=== PATIENT | female | born 2000 | race Caucasian/White ===

== ENCOUNTER 2020-07-07 20:42 | Outpatient (CLI) | payer OTHER ==
[~2020-07-07] VITALS: Ht 172.7 cm; Wt 72.7 kg
[2020-07-07 20:53] VITALS: BP 124/75
[2020-07-07 20:56] VITALS: BP 109/72
[2020-07-07] MEDS ORDERED: PRENTAB9 PO (21:05)
[2020-07-07 21:41] VITALS: BP 108/72
--- NOTE | 2020-07-09 08:11 | HPE ---
DATE OF SERVICE: 07/07/2020. HISTORY OF PRESENT ILLNESS: A 20-year-old 1, para 0, LMP 11/15/2019, EDC 08/21/2020 at 33 and 4/7 weeks with decreased movement. Labs O positive, HIV negative, Hep negative, RPR negative, Varicella immune, Rubella immune. Urine negative. Gonorrhea and Chlamydia are negative. Early glucose was 80. Blood pressure 108/72, respirations 16, pulse 83, temperature 97.6. Urine: 1.005, pH 7 and negative. PHYSICAL EXAMINATION: In no distress. Fundal height is 34. Vertex OA. Category 1 strip. Good accelerations. No decelerations. Moderate variability. Baseline is normal. IMAGING: Ultrasound showed vertex presenting, JULIA quadriceps 1 4.92 cm, quadrant 2 4.28 cm, quadrant 3 3.50 cm. motion and limb movement was noted as well as tone. She has no ruptured membranes , bleeding or discharge. Precautions were given. Patient was discharged un-delivered and is to keep her appointment with [facility]. All questions were answered. Thirty minute discussion and one hour on the monitor. MTDD
== END 2020-07-07 21:55 | disposition home or self-care (01) ==
LOC: M LDO 20:42
PROVIDERS: ATTEND Obstetrics & Gynecology
DX: O36.8131 Decreased fetal movements, third trimester, fetus 1 (principal); Z3A.33 33 weeks gestation of pregnancy
CPT/HCPCS: 59025; G0378; G0463

== ENCOUNTER 2020-08-15 11:37 | Inpatient (IN) | payer OTHER ==
[~2020-08-15] VITALS: Ht 170.2 cm; Wt 15.3 kg
[2020-08-15] VITALS (12 sets, daily range): BP systolic 113–133; BP diastolic 69–86
[~2020-08-15 11:37] MED LIST: PRENTAB9 PO
[2020-08-15 14:31] LABS: HEMATOCRIT 38.1 % (36.0-47.0); HEMOGLOBIN 12.9 g/dl (12.0-15.5); MEAN CORPUSCULAR HEMOGLOBIN 31.2 pg (27.0-33.0); MEAN CORPUSCULAR HGB CONC 33.9 g/dl (32.0-36.5); MEAN CORPUSCULAR VOLUME 92.3 fl (80.0-96.0); PLATELET COUNT, AUTOMATED 179 10^3/uL (150-450); RED BLOOD COUNT 4.13 10^6/uL (4.00-5.40); WHITE BLOOD COUNT 12.5 10^3/uL (4.0-10.0)
--- NOTE | 2020-08-15 15:27 | HPEPDOC ---
Obstetrical History & Physical General Date of Admission Aug 15, 2020 at 13:26 History of Present Illness 20yo at 39+1wks presenting for worsening painful ctx's since 0800 this AM. She made cervical change from 3/50/-2 to 5/80/-1. She denies VB, LOF, or DFM. Chief Complaint: Contractions, term Information Provided By: Patient Care Care: Good Care Dating Final EDC: Aug 21, 2020 Final EDC for Daily Update: Aug 21, 2020 Final EDC by: LMP (c/w 9w2d ultrasound on [id number]) EGA at Admission: 39 (+1) Antepartum Course Diagnos(e)s Uncomplicated Height (inches): 68 Pre- weight (lbs.): 136 Admission Weight (lbs.): 165 Change in Weight (lbs.): 29 Past Medical History [employer] History: No pertinent history Past Medical History Medical History Denies Surgical History: Denies/None Family History Significant Family History: No pertinent family hx Social History Marital Status: Family situation: Spouse/partner home Psychosocial History: No pertinent psych hx * Smoker: non-smoker Alcohol: Denies Drugs: denies Abuse Violence Screening Have you been hit/kicked/slapp: No Have you been sexually assault: No Imunizations Tdap status: current (06/24/20) Influenza Status: current ([id number]) Allergies Coded Allergies: No Known Allergies (Unverified , 07/07/20) Medications Scheduled No.137/Iron/Folic Acd ( Vitamin Tablet) 1 Each Tablet, 1 TAB PO DAILY Physical Examination Physical Examination GENERAL: Alert and oriented times three. ABDOMEN: Gravid and non-tender to touch. FETUS: Is vertex (VTX) by sterile vaginal examination (SVE), fetus is vertex (V TX) by Eros. CARDS: well-perfused RESP: no exaggerated respiratory effort appreciated EXTREMITIES: No edema. SVE: NEFG, cervix 5/80/-1, membranes intact, no abnml vaginal discharge or lesions seen Vital Signs/I&O Vital Signs Date Time Temp Pulse Resp B/P (MAP) Pulse Ox O2 Delivery O2 Flow Rate FiO2 08/15/20 12:31 99 18 113/78 (90) 08/15/20 12:00 97.8 Laboratory Data 24H LABS Laboratory Tests 2 08/15/20 14:13: Nucleated Red Blood Cells % (auto) 0.0 08/15/20 14:34: Serology Scanned Report Hepatitis B Testing CBC/BMP Laboratory Tests 08/15/20 14:13 Urine Culture: No Growth Pertinent Laboratoy Data Blood Type: B+ RBC Antibody Screen: Negative HIV: Negative Hepatitis B: Negative Rapid Plasma Reagin: Nonreactive Rubella: Immune Varicella: Immune Chlamydia/Gonorrhea: Negative Group B Streptococcus: Negative Quad Screen Test: Negative Cystic Fibrosis: Negative Glucose Tolerance Test: 80 Anatomy Ultrasound Placenta Location: Posterior Normal Anatomy: Yes Placenta Previa: No Vaginal Examination Dilation: 5 cm Effacement: 80% Station: -1 Cervical Consistency: Soft Cervical Position: Anterior Presentation: Cephalic presentation Assessment Heart Rate (FHR): 135 Variability: Moderate Accelerations: Positive Decelerations: None Tocometer Contractions: Yes Frequency: every 2-5 min. Multi-drug resistant Organism: No history of MDRO Assessment/Plan Assessment 20yo at 39+1wks presenting for ctx's and found to be in active labor with cervical change while in triage. Normotensive, afebrile, FHRT cat I. GBS neg. EFW 3200g. Plan Admit and orient. [employer] Administrator and consent. Diet: clears as tolerated Group B Streptococcus (GBS) negative. Labs and intravenous (IV) per unit protocol. Counseled on Pitocin, AROM, and augmentation of labor as indicated. Lactated Ringers (LR): Bolus 500 mL, then at 125 mL/hr. Anticipate normal spontaneous delivery (). Patient may have epidural as desired C-S as appropriate. CHARLOTTE JONES DO Aug 15, 2020 15:27
--- NOTE | 2020-08-15 15:31 | IPNPDOC ---
Obstetrical Progress Note Date of Service Aug 15, 2020 Subjective Patient reports she is doing ok. Reports ctx's are slowing a bit and she is comfortable without pain medication at this time. Objective Vital Signs Date Time Temp Pulse Resp B/P (MAP) Pulse Ox O2 Delivery O2 Flow Rate FiO2 08/15/20 12:31 99 18 113/78 (90) 08/15/20 12:00 97.8 Assessment Heart Rate (FHR): 135 Variability: Moderate Accelerations: Positive Decelerations: None Heart Rate Tracing: Category I Tocometer Contractions: Yes Frequency: every 3-7 min. Sterile Vaginal Examination Dilation: 6 cm Effacement (%): 100% Station: -1 Cervical Consistency: Soft Cervical Position: Anterior Postion/Presentation: Cephalic presentation Assessment and Plan Status: Reassuring Group B Streptococcus: Negative Anticipate: Vaginal Delivery Additional Comments Patient has made cervical change to 6/c/-1. FHRT cat I. Patient counseled on augmentation with AROM due to spacing of ctx's and was amenable. AROM performed notable for moderate amount of clear fluid. Will allow intermittent monitoring and patient may use tub/shower as desired to pain control. Patient does have epidural orders if she changes her mind and desires epidural for pain control. All questions answered. CHARLOTTE JONES DO Aug 15, 2020 15:31
[2020-08-15] MEDS ORDERED: FENTANYL 2MCG/ML ROPIVACAINE 0.2% IN 0.9% NACL 100ML IVBAG As Ordered ONE (15:56)
[2020-08-15] MEDS ORDERED: OXYTOCIN 30 UNITS IN 0.9% NaCl 500ML IV BAG (J2590) As Ordered ONE (16:31)
--- NOTE | 2020-08-15 17:23 | DNPDOC ---
[facility] Delivery Note Delivery Note DATE OF DELIVERY: 08/15/2020 PREDELIVERY DIAGNOSIS: 39+1/7 weeks' gestation and labor. POST DELIVERY DIAGNOSIS: Delivered. PROCEDURE: Spontaneous vaginal delivery. ABRASIVE BAND WINDER: Dr. Charlotte Jones ANESTHESIA: Local ESTIMATED BLOOD LOSS: 200 mL. FINDINGS: 7 pound 1 ounce 3210g female infant, Score 9/9, no nuchal cord, no meconium. DELIVERY SUMMARY: Patient found to make rapid cervical change to c/c/+2. With excellent maternal e ffort, patient pushed for spontaneous vaginal delivery of a viable female infant in hands-knees position. Presentation was OA with restitution to ROT with left shoulder anterior position. Anterior shoulder and body delivered spontaneously. No nuchal or body cord noted. No meconium appreciated. Infant with vigorous spontaneous cry on delivery field therefore passed through mother's legs for her to hold while provider did bulb suction and Bowie RN dried infant. Patient assisted to lithotomy position. Pitocin IV bolus initiated. After 5 minutes of delayed cord clamping, three vessel cord clamped x2 and cut by FOB. Third stage spontaneous with intact placenta. Fundal massage revealed firm uterine tone. Inspection revealed left labial laceration with active bleeding. After injection of 10ml of lidocaine 1%, this was repaired using 3-0 vicryl in running, non- locking fashion with excellent approximation of tissue and hemostasis achieved. EBL 200ml. Mother and stable and bonding upon my leaving the room. CHARLOTTE JONES DO Aug 15, 2020 17:23
[2020-08-16 06:20] VITALS: BP 112/68
--- NOTE | 2020-08-16 11:12 | IPNPDOC ---
Progress Note Date of Service: Aug 16, 2020 Day#: 1 Progress Note SUBJECT: Deborah is a 20yo PPD#1 s/p . She reports minimal pain. Reports her lochia is decreasing. She is without difficulty. OBJECTIVE: VITAL SIGNS: Within normal limits, afebrile. Alert and oriented times three. RESP: No exaggerated respiratory effort appreciated CARDS: well-perfused Abdomen: Fundus firm at U-2. Soft, NTTP. EXTREM: no edema ASSESSMENT: Deborah is a 20yo PPD#1 s/p doing well. Vitals within normal limits, afebrile, hemodynamically stable with no evidence of infection. PLAN: 1. Discharge to home tomorrow. 2. Tylenol and Motrin for pain. 3. Encourage breast feeding with consult PRN. 4. Encourage regular diet as tolerated 5. Encourage ambulation. 6. Discussed return precautions at length. VS, I&O, 24H, Fishbone Vital Signs/I&O Vital Signs Date Time Temp Pulse Resp B/P (MAP) Pulse Ox O2 Delivery O2 Flow Rate FiO2 08/16/20 06:20 97.5 91 16 112/68 (83) I&O- Last 24 Hours up to 6 AM 08/16/20 06:00 Intake Total 500 ml Output Total 800 ml Balance -300 ml Laboratory Data 24H LABS Laboratory Tests 2 08/15/20 14:13: Nucleated Red Blood Cells % (auto) 0.0, Syphilis Serology NONREACTIVE 08/15/20 14:34: Serology Scanned Report Hepatitis B Testing CBC/BMP Laboratory Tests 08/15/20 14:13 CHARLOTTE JONES DO Aug 16, 2020 11:12
[2020-08-16 18:00] VITALS: BP 102/55
[2020-08-17 06:01] VITALS: BP 121/72
--- NOTE | 2020-08-17 06:43 | IPNPDOC ---
Progress Note Date of Service: Aug 17, 2020 Day#: 2 Progress Note SUBJECT: Deborah is a 20yo PPD#2 s/p . She reports minimal pain. Reports her lochia is decreasing. She is without difficulty. OBJECTIVE: VITAL SIGNS: Within normal limits, afebrile. Alert and oriented times three. RESP: No exaggerated respiratory effort appreciated CARDS: well-perfused Abdomen: Fundus firm at U-2. Soft, NTTP. EXTREM: no edema ASSESSMENT: Deborah is a 20yo PPD#2 s/p doing well. Vitals within normal limits, afebrile, hemodynamically stable with no evidence of infection. PLAN: 1. Discharge to home today. 2. Tylenol and Motrin for pain. 3. Encourage breast feeding with consult PRN. 4. Encourage regular diet as tolerated 5. Encourage ambulation. 6. Discussed return precautions at length. VS, I&O, 24H, Fishbone Vital Signs/I&O Vital Signs Date Time Temp Pulse Resp B/P (MAP) Pulse Ox O2 Delivery O2 Flow Rate FiO2 08/16/20 18:00 98.2 99 18 102/55 (71) CHARLOTTE JONES DO Aug 17, 2020 01:22
== END 2020-08-17 14:16 | disposition home or self-care (01) | DRG 807 ==
LOC: M LDO 11:37 → M LDI 13:26 → M OBS 19:40
PROC: 10E0XZZ Delivery of Products of Conception, External Approach (ICD-10-PCS; principal; 2020-08-15)
PROC: 0HQ9XZZ Repair Perineum Skin, External Approach (ICD-10-PCS; 2020-08-15)
DX: O70.0 First degree perineal laceration during delivery (principal); Z37.0 Single live birth; Z3A.39 39 weeks gestation of pregnancy